=== PATIENT | female | born 1985 | race Caucasian/White ===

== ENCOUNTER → 2020-02-28 | Outpatient (CLI) | payer OTHER ==
[~2020-02-28] MED LIST: PHENERGAN 25 MG25 M1 PO; ZOFRAN ODT 4 MG4 MG PO
== END ==
LOC: LAB 11:37
DX: N92.6 Irregular menstruation, unspecified (principal)
CPT/HCPCS: 84703

== ENCOUNTER → 2020-03-01 | Outpatient (CLI) | payer OTHER | LOC: RAD 15:42 | DX: M54.6 Pain in thoracic spine (principal) | CPT/HCPCS: 72072 ==

== ENCOUNTER → 2020-03-18 | Outpatient (CLI) | payer OTHER | LOC: KOH-I 03-15 13:00 | DX: M54.6 Pain in thoracic spine (principal); M43.8X4 Other specified deforming dorsopathies, thoracic region | CPT/HCPCS: 72146 ==

== ENCOUNTER → 2020-12-10 | Outpatient (CLI) | payer OTHER | LOC: RAD 13:10 | DX: M54.6 Pain in thoracic spine (principal); G89.4 Chronic pain syndrome; Q76.49 Other congenital malformations of spine, not associated with scoliosis; S22.039D Unspecified fracture of third thoracic vertebra, subsequent encounter for fracture with routine healing; S22.049D Unspecified fracture of fourth thoracic vertebra, subsequent encounter for fracture with routine healing; S22.059D Unspecified fracture of T5-T6 vertebra, subsequent encounter for fracture with routine healing; V89.2XXD Person injured in unspecified motor-vehicle accident, traffic, subsequent encounter | CPT/HCPCS: 72072; 72110 ==

== ENCOUNTER 2020-12-23 15:00 | Inpatient (IN) | payer OTHER ==
[~2020-12-23] VITALS: Ht 154.9 cm; Wt 33.6 kg
[2020-12-23 16:27] LABS: HEMOGLOBIN 16.2 gm/dl (12.3-15.3); RED BLOOD COUNT 5.03 M/UL (4.00-5.10)
[2020-12-23 17:07] LABS: BUN/CREATININE RATIO 29 (0-10)
[2020-12-23] MEDS ORDERED: HYDROCODON-ACE1 EAC4 PO (19:25)
[2020-12-23 23:30] LABS: HEMOGLOBIN 14.6 gm/dl (12.3-15.3); WHITE BLOOD COUNT 16.7 K/UL (4.5-11.0)
[2020-12-23 23:35] LABS: RED BLOOD COUNT 4.52 M/UL (4.00-5.10)
[2020-12-23 23:54] LABS: BUN/CREATININE RATIO 23 (0-10)
[2020-12-24 07:23] LABS: HEMOGLOBIN 13.7 gm/dl (12.3-15.3); RED BLOOD COUNT 4.35 M/UL (4.00-5.10); WHITE BLOOD COUNT 14.8 K/UL (4.5-11.0)
[2020-12-25 05:03] LABS: HEMOGLOBIN 11.8 gm/dl (12.3-15.3)
[2020-12-25 05:04] LABS: RED BLOOD COUNT 3.86 M/UL (4.00-5.10); WHITE BLOOD COUNT 8.1 K/UL (4.5-11.0)
[2020-12-25 05:55] LABS: BUN/CREATININE RATIO 20 (0-10)
[2020-12-26 06:21] LABS: RED BLOOD COUNT 3.83 M/UL (4.00-5.10); WHITE BLOOD COUNT 8.1 K/UL (4.5-11.0)
[2020-12-26 07:04] LABS: BUN/CREATININE RATIO 17 (0-10)
[2020-12-27 09:00] LABS: HEMOGLOBIN 11.5 gm/dl (12.3-15.3); RED BLOOD COUNT 3.68 M/UL (4.00-5.10); WHITE BLOOD COUNT 8.3 K/UL (4.5-11.0)
[2020-12-27 09:16] LABS: BUN/CREATININE RATIO 18 (0-10)
[2020-12-27 15:50] LABS: BUN/CREATININE RATIO 19 (0-10)
[2020-12-28 06:15] LABS: BUN/CREATININE RATIO 21 (0-10)
[2020-12-29] MEDS ORDERED: FOLIC ACID 1 MG1 MG PO (10:35)
[2020-12-29] MEDS ORDERED: VITAMIN B-1100 M1 PO (10:35)
[2020-12-29] MEDS ORDERED: TAB-A-VITE TA400 MC1 PO (10:35)
[2020-12-29] MEDS ORDERED: CARBAMAZEPINE PO (10:35)
[2020-12-29] MEDS ORDERED: LISINOPRIL5 MG PO (10:37)
== END 2020-12-30 11:55 | disposition home or self-care (01) | DRG 552 ==
LOC: ER1 15:00 → CDU 18:58 → M/S 22:35
PROVIDERS: Nurse Practitioner; ADMIT Internal Medicine
DX: S22.029A Unspecified fracture of second thoracic vertebra, initial encounter for closed fracture (principal); R64 Cachexia; R45.851 Suicidal ideations; Z68.1 Body mass index [BMI] 19.9 or less, adult; E44.0 Moderate protein-calorie malnutrition; Z20.822 Contact with and (suspected) exposure to COVID-19; S22.039A Unspecified fracture of third thoracic vertebra, initial encounter for closed fracture; S22.049A Unspecified fracture of fourth thoracic vertebra, initial encounter for closed fracture; F10.10 Alcohol abuse, uncomplicated; F17.210 Nicotine dependence, cigarettes, uncomplicated; K70.10 Alcoholic hepatitis without ascites; E86.0 Dehydration; R20.8 Other disturbances of skin sensation; G43.909 Migraine, unspecified, not intractable, without status migrainosus; N91.2 Amenorrhea, unspecified; R74.01 Elevation of levels of liver transaminase levels; F12.929 Cannabis use, unspecified with intoxication, unspecified; G89.29 Other chronic pain; Z82.49 Family history of ischemic heart disease and other diseases of the circulatory system; Z82.3 Family history of stroke
CPT/HCPCS: 36415; 71045; 71275; 72125; 72128; 72141; 72146; 80048; 80053; 80202; 80307; 81001; 82533; 82550; 82553; 82803; 83605; 83874; 84439; 84443; 84484; 84703; 85025; 85379; 85610; 85652; 86140; 87040; 93005; 93970; 96372; 96374; 96375; 96376; 97161; 99285; G0378; G0480; J0692; J1650; J1885; J2270; J2405; J3370; J7030; J7050; J7070; Q9967; U0002

== ENCOUNTER → 2021-04-01 | Outpatient (CLI) | payer OTHER ==
[~2021-04-01] MED LIST changes: +CARBAMAZEPINE PO; +FOLIC ACID 1 MG1 MG PO; +HYDROCODON-ACE1 EAC4 PO; +LISINOPRIL5 MG PO; +TAB-A-VITE TA400 MC1 PO; +VITAMIN B-1100 M1 PO
== END ==
LOC: KOH-I 14:14
DX: M50.222 Other cervical disc displacement at C5-C6 level (principal); M51.84 Other intervertebral disc disorders, thoracic region; Q27.9 Congenital malformation of peripheral vascular system, unspecified
CPT/HCPCS: 72141; 72146

== ENCOUNTER → 2021-10-03 | Outpatient (CLI) | payer OTHER | LOC: KOH-I 09:35 | DX: M50.022 Cervical disc disorder at C5-C6 level with myelopathy (principal) | CPT/HCPCS: 72141 ==

== ENCOUNTER → 2021-10-18 | Outpatient (CLI) | payer OTHER | LOC: KOH-I 13:30 | DX: M50.122 Cervical disc disorder at C5-C6 level with radiculopathy (principal); M48.02 Spinal stenosis, cervical region | CPT/HCPCS: 72125 ==

== ENCOUNTER → 2021-10-27 | Outpatient (CLI) | payer OTHER ==
[~2021-10-27] MED LIST changes: +BACLOFEN10 MG PO; +DICLOFENAC GEL 1% TOP; +FOLIC ACID1 MG PO; +HYDROCODONE-AC1 EACH PO; +MELATONIN5 M2 PO; +METHOTREXATE T2.5 MG PO; +PREDNISONE10 MG PO; +TIZANIDINE HCL4 MG PO; +VOLTAREN EC 5050 MG PO; +ZOFRAN
[2021-10-27 13:43] LABS: HEMOGLOBIN 13.2 gm/dl (12.3-15.3); RED BLOOD COUNT 4.41 M/UL (4.00-5.10)
[2021-10-27 14:00] LABS: BUN/CREATININE RATIO 16 (0-10)
== END ==
LOC: OPSV2 12:30 → EDSTATUS 12:30 → OPSV2 13:19
PROVIDERS: Orthopaedic Surgery
DX: Z01.818 Encounter for other preprocedural examination (principal); M54.12 Radiculopathy, cervical region
CPT/HCPCS: 71046; 80048; 81001; 85027; 85610; 85730; 87077; 87081; 87086; 87186; 93005

== ENCOUNTER → 2021-11-15 | Outpatient (CLI) | payer OTHER ==
[~2021-11-15] MED LIST changes: +ARTHRITIS PAIN150 GM TOP; -DICLOFENAC GEL 1% TOP; +DICLOFENAC SODI50 MG PO; +ROXICODONE5 MG PO; -VOLTAREN EC 5050 MG PO; +ZOFRAN 4 MG TAB4 MG PO
[2021-11-15 11:55] LABS: BUN/CREATININE RATIO 16 (0-10)
== END ==
LOC: LAB 10:20
PROVIDERS: Orthopaedic Surgery
DX: Z01.812 Encounter for preprocedural laboratory examination (principal)
CPT/HCPCS: 36415; 80048; 86850; 86900; 86901

== ENCOUNTER 2021-11-16 05:23 | Inpatient (IN) | payer OTHER ==
[~2021-11-16] VITALS: Ht 154.9 cm; Wt 39.0 kg
[~2021-11-16 05:23] MED LIST changes: -ROXICODONE5 MG PO; -ZOFRAN 4 MG TAB4 MG PO
[2021-11-16] MEDS ORDERED: ZOFRAN 4 MG TAB4 MG PO (06:24)
[2021-11-16 11:05] LABS: HEMOGLOBIN 12.3 gm/dl (12.3-15.3); WHITE BLOOD COUNT 7.8 K/UL (4.5-11.0)
[2021-11-16 11:26] LABS: BUN/CREATININE RATIO 10 (0-10)
[2021-11-17 04:29] LABS: HEMOGLOBIN 12.2 gm/dl (12.3-15.3); RED BLOOD COUNT 3.94 M/UL (4.00-5.10)
[2021-11-17 04:32] LABS: WHITE BLOOD COUNT 15.5 K/UL (4.5-11.0)
[2021-11-17 04:44] LABS: BUN/CREATININE RATIO 11 (0-10)
[2021-11-18 03:59] LABS: HEMOGLOBIN 11.7 gm/dl (12.3-15.3); RED BLOOD COUNT 3.77 M/UL (4.00-5.10); WHITE BLOOD COUNT 13.8 K/UL (4.5-11.0)
[2021-11-18 04:24] LABS: BUN/CREATININE RATIO 14 (0-10)
[2021-11-18] MEDS ORDERED: ROXICODONE5 MG PO (11:47)
== END 2021-11-18 16:06 | disposition home or self-care (01) | DRG 29 ==
LOC: OR 05:23 → CCU 15:04 → OR 15:04 → CCU 11-17 12:46 → M/S 11-17 12:46
PROVIDERS: ADMIT Orthopaedic Surgery
PROC: 4A11X4G Monitoring of Peripheral Nervous Electrical Activity, Intraoperative, External Approach (ICD-10-PCS; 2021-11-16)
PROC: 0RG10A0 Fusion of Cervical Vertebral Joint with Interbody Fusion Device, Anterior Approach, Anterior Column, Open Approach (ICD-10-PCS; principal; 2021-11-16 07:30)
PROC: 0RB30ZZ Excision of Cervical Vertebral Disc, Open Approach (ICD-10-PCS; 2021-11-16 07:30)
DX: G95.89 Other specified diseases of spinal cord (principal); Z68.1 Body mass index [BMI] 19.9 or less, adult; M48.02 Spinal stenosis, cervical region; M54.12 Radiculopathy, cervical region; F41.9 Anxiety disorder, unspecified; F32.A Depression, unspecified; D72.829 Elevated white blood cell count, unspecified; R63.6 Underweight; Z82.49 Family history of ischemic heart disease and other diseases of the circulatory system; Z82.61 Family history of arthritis; Z79.899 Other long term (current) drug therapy; Z84.1 Family history of disorders of kidney and ureter; Z98.890 Other specified postprocedural states; Z87.891 Personal history of nicotine dependence
CPT/HCPCS: 36415; 71045; 72040; 72050; 76000; 80048; 84703; 85025; 85027; 92526; 92610; 97116; 97116-GP-CQ; 97161; 97166; C1713; C1762; J0690; J1100; J1170; J1885; J2001; J2250; J2370; J2405; J2704; J3010; J3475; J7040